=== PATIENT | female | born 1995 | race Two or more races ===

== ENCOUNTER → 2017-03-26 | Outpatient (CLI) | payer BC ==
[2017-03-26 12:36] LABS: Basophils # (auto) 0 uL; Basophils % (auto) 0.6 % (0.0-2.0); Eosinophils # (auto) 0.2 uL; Eosinophils % (auto) 2.9 % (0.0-7.0); Hematocrit 41.9 % (36.0-46.0); Hemoglobin 14.1 g/dL (12.2-16.2); Lymphocytes # (auto) 2.1 uL; Lymphocytes % (auto) 33.8 % (10.0-50.0); Mean Corpuscular Hemoglobin 28.4 pg (28.0-32.0); Mean Corpuscular Hgb Conc. 33.7 g/dL (32.0-36.0); Mean Corpuscular Volume 84.2 fL (80.0-100.0); Mean Platelet Volume 7.4 fL (6.9-10.8); Monocytes # (auto) 0.3 uL; Monocytes % (auto) 5.2 % (0.0-12.0); Neutrophils # (auto) 3.5 uL; Neutrophils % (auto) 57.5 % (37.0-80.0); Nucleated Red Blood Cells % 0.1 %; Platelet Count (auto) 346 10^3/uL (140-450); Red Cell Distribution Width 13.1 % (11.8-14.3); White Blood Cell 6.1 10^3/uL (4.4-10.8)
[2017-03-26 13:26] LABS: Albumin 4.1 g/dL (3.4-5.0); Bilirubin, Total 0.4 mg/dL (0.2-1.0); Calcium 9.5 mg/dL (8.5-10.1); Potassium 3.4 mmol/L (3.5-5.1); Total Protein 8.5 g/dL (6.4-8.2)
[2017-03-26 14:18] LABS: Urine Bilirubin Negative (Negative); Urine Blood TRACE /uL (Negative); Urine Color Yellow (Yellow); Urine Glucose Normal (Normal); Urine Ketone Negative (Negative); Urine Mucus FEW (None Seen); Urine Nitrite Negative (Negative); Urine RBC 1 /hpf (0 - 4); Urine Squamous Epithelial Cell MOD /hpf (<5); Urine Urobilinogen Normal (Negative); Urine pH 5.5 (5.0-8.0)
== END | disposition home or self-care (01) ==
LOC: LAB 11:35
PROVIDERS: ATTEND Internal Medicine
DX: N95.1 Menopausal and female climacteric states (principal); N39.9 Disorder of urinary system, unspecified; R53.83 Other fatigue; Z79.899 Other long term (current) drug therapy
CPT/HCPCS: 36415; 80053; 80061; 81001; 82670; 83001; 84146; 84439; 84443; 85025; 85652

== ENCOUNTER → 2017-04-14 | Outpatient (CLI) | payer BC ==
[2017-04-14 08:50] LABS: INR 0.92 (0.9-1.15)
[2017-04-14 09:12] LABS: Hepatitis B Surface Antibody Negative
[2017-04-16 05:06] LABS: Ceruloplasmin 27.4 mg/dL (19.0-39.0)
== END | disposition home or self-care (01) ==
LOC: LAB 07:23
PROVIDERS: ATTEND Internal Medicine
DX: R79.89 Other specified abnormal findings of blood chemistry (principal)
CPT/HCPCS: 36415; 82390; 83540; 83550; 85610; 86038; 86256; 86704; 86705; 86706; 86708; 86709; 86803; 87340

== ENCOUNTER 2018-04-26 20:05 | Emergency (ER) | payer BC ==
[~2018-04-26] VITALS: Ht 154.9 cm; Wt 90.7 kg
[2018-04-26] MEDS ORDERED: DEXAMETHASONE 4 MG TAB PO ONE (20:30)
[2018-04-26] MEDS ORDERED: diphenhdrAMINE HCL 25 MG CAP PO ONE (20:30)
[2018-04-26] MEDS ORDERED: FAMOTIDINE 20 MG TAB PO ONE (20:30)
[2018-04-26] MEDS ORDERED: DEXAMETHASONE 4 MG TAB ONE (20:32)
[2018-04-26] MEDS ORDERED: FAMOTIDINE (10MG/ML) 2ML VL IV ONE (21:45)
[2018-04-26] MEDS ORDERED: diphenhdrAMINE HCL 50 MG/1 ML VL IV ONE (21:45)
[2018-04-26] MEDS ORDERED: DEXAMETHASONE SOD PHOS 10MG/1ML VIAL INJ IV ONE (21:45)
[2018-04-26 23:00] VITALS: BP 127/86
== END 2018-04-27 00:15 | disposition home or self-care (01) ==
LOC: ER 20:05
DX: L50.8 Other urticaria (principal)
CPT/HCPCS: 96374; 96375; 99284; J1100; J1200; J3490; J8540

== ENCOUNTER 2018-04-27 14:59 | Emergency (ER) | payer BC ==
[~2018-04-27] VITALS: Ht 154.9 cm; Wt 86.6 kg
[2018-04-27 15:33] VITALS: BP 141/90
[2018-04-27] MEDS ORDERED: EPINEPHrine HCL 1 MG/1 ML AMP SC ONE (16:15)
[2018-04-27] MEDS ORDERED: methylPREDNISolone SOD SUCC 125 MG/2 ML VL IM ONE (16:15)
== END 2018-04-27 16:52 | disposition home or self-care (01) ==
LOC: ER 14:59
DX: T78.40XA Allergy, unspecified, initial encounter (principal); X58.XXXA Exposure to other specified factors, initial encounter
CPT/HCPCS: 96372; 99283; J0171; J2930

== ENCOUNTER 2018-04-27 20:50 | Emergency (ER) | payer BC ==
[~2018-04-27] VITALS: Ht 154.9 cm; Wt 88.0 kg
[2018-04-27] MEDS ORDERED: ONDANSETRON HCL 4 MG/2 ML VIAL ONE (22:12)
[2018-04-27] MEDS ORDERED: EPINEPHrine HCL 1 MG/1 ML AMP SC ONE (22:15)
[2018-04-27] MEDS ORDERED: FAMOTIDINE (10MG/ML) 2ML VL IV ONE (22:15)
[2018-04-27] MEDS ORDERED: methylPREDNISolone SOD SUCC 125 MG/2 ML VL IV ONE (22:15)
[2018-04-27] MEDS ORDERED: EPINEPHrine HCL 1 MG/1 ML AMP ONE (22:17)
[2018-04-28] MEDS ORDERED: SODIUM CHLORIDE 0.9% 1,000 ML IV ONE
[2018-04-28] MEDS ORDERED: ONDANSETRON HCL 4 MG/2 ML VIAL IV ONE
[2018-04-28 00:30] VITALS: BP 128/78
== END 2018-04-28 01:38 | disposition home or self-care (01) ==
LOC: ER 20:50
DX: T78.3XXA Angioneurotic edema, initial encounter (principal); Z88.2 Allergy status to sulfonamides; X58.XXXA Exposure to other specified factors, initial encounter
CPT/HCPCS: 96372; 96374; 96375; 99283; J0171; J2405; J2930; J3490; J7030

== ENCOUNTER → 2019-10-01 | Outpatient (CLI) | payer OTHER | END | disposition home or self-care (01) | LOC: CANPRECLI → LAB 14:29 | PROVIDERS: ATTEND Nurse Practitioner Family | DX: Z20.828 Contact with and (suspected) exposure to other viral communicable diseases (principal) ==

== ENCOUNTER → 2019-10-05 | Outpatient (CLI) | payer OTHER | END | disposition home or self-care (01) | LOC: LAB 13:43 | PROVIDERS: ATTEND Nurse Practitioner Family | DX: Z03.818 Encounter for observation for suspected exposure to other biological agents ruled out (principal) | CPT/HCPCS: U0003 ×2 ==

== ENCOUNTER → 2019-12-08 | Outpatient (CLI) | payer BC ==
[~2019-12-08] MED LIST: ONDA-144 PO
[2019-12-08 10:15] LABS: Basophils # (auto) 0 10 ^3/uL (0-0.2); Basophils % (auto) 0.5 % (0.0-2.0); Eosinophils # (auto) 0.3 10 ^3/uL (0-0.8); Eosinophils % (auto) 4.1 % (0.0-7.0); Hematocrit 41.9 % (36.0-46.0); Hemoglobin 13.6 g/dL (12.2-16.2); Lymphocytes # (auto) 1.8 10 ^3/uL (0.4-5.4); Lymphocytes % (auto) 28.1 % (10.0-50.0); Mean Corpuscular Hemoglobin 27.3 pg (28.0-32.0); Mean Corpuscular Hgb Conc. 32.5 g/dL (32.0-36.0); Monocytes # (auto) 0.4 10 ^3/uL (0-1.3); Monocytes % (auto) 5.9 % (0.0-12.0); Neutrophils % (auto) 61.4 % (37.0-80.0); Nucleated Red Blood Cells % 0.1 %; Platelet Count (auto) 369 10^3/uL (140-450); Red Blood Cells 4.99 10^6/uL (4.0-5.20); Red Cell Distribution Width 13.6 % (11.8-14.3); White Blood Cell 6.5 10^3/uL (4.4-10.8)
[2019-12-08 10:31] LABS: Urine Bacteria FEW /hpf (None Seen); Urine Blood 3+ /uL (Negative); Urine Mucus FEW (None Seen); Urine Specific Gravity 1.024 (1.001-1.035); Urine WBC 144 /hpf (0 - 5)
[2019-12-08 10:37] LABS: Albumin 3.7 g/dL (3.4-5.0); Calcium 9.8 mg/dL (8.5-10.1); Potassium 3.8 mmol/L (3.5-5.1)
[2019-12-08 10:42] LABS: BUN/Creatinine Ratio 13.6; Bilirubin, Total 0.3 mg/dL (0.2-1.0)
== END | disposition home or self-care (01) ==
LOC: LAB 09:36
PROVIDERS: ATTEND Internal Medicine
DX: F41.8 Other specified anxiety disorders (principal); K76.0 Fatty (change of) liver, not elsewhere classified
CPT/HCPCS: 36415; 80053; 80061; 81001; 84439; 84443; 85025; 85652

== ENCOUNTER 2020-01-04 16:47 | Inpatient (IN) | payer BC ==
[~2020-01-04] VITALS: Ht 154.9 cm; Wt 90.5 kg
[2020-01-04 17:39] LABS: Basophils # (auto) 0 10 ^3/uL (0-0.2); Basophils % (auto) 0.1 % (0.0-2.0); Eosinophils # (auto) 0.2 10 ^3/uL (0-0.8); Eosinophils % (auto) 0.9 % (0.0-7.0); Hematocrit 44.8 % (36.0-46.0); Hemoglobin 14.9 g/dL (12.2-16.2); Lymphocytes # (auto) 1.2 10 ^3/uL (0.4-5.4); Lymphocytes % (auto) 6.9 % (10.0-50.0); Mean Corpuscular Hemoglobin 27.6 pg (28.0-32.0); Mean Corpuscular Hgb Conc. 33.2 g/dL (32.0-36.0); Monocytes # (auto) 0.9 10 ^3/uL (0-1.3); Monocytes % (auto) 5.1 % (0.0-12.0); Neutrophils # (auto) 14.7 10 ^3/uL (1.6-8.6); Nucleated Red Blood Cells % 0.1 %; Platelet Count (auto) 420 10^3/uL (140-450); Red Blood Cells 5.39 10^6/uL (4.0-5.20); Red Cell Distribution Width 13.4 % (11.8-14.3); White Blood Cell 16.9 10^3/uL (4.4-10.8)
[2020-01-04] MEDS ORDERED: SODIUM CHLORIDE 0.9% 1,000 ML IV ONE ×2 (17:55)
[2020-01-04 17:59] LABS: Albumin 4.2 g/dL (3.4-5.0); BUN/Creatinine Ratio 23.5; Calcium 8.9 mg/dL (8.5-10.1); Potassium 3.6 mmol/L (3.5-5.1)
[2020-01-04] MEDS ORDERED: metroNIDAZOLE 500MG/100ML 100 ML IV ONE (18:00)
[2020-01-04] MEDS ORDERED: cefTRIAXone 1GM/50ML D5W 50 ML IV ONE (18:00)
[2020-01-04] MEDS ORDERED: ONDANSETRON HCL 4 MG/2 ML VIAL IV ONE (18:00)
[2020-01-04 18:01] LABS: Bilirubin, Total 0.8 mg/dL (0.2-1.0); Total Protein 8.7 g/dL (6.4-8.2)
[2020-01-04] MEDS ORDERED: ACETAMINOPHEN 325 MG TAB PO PRN (18:45)
[2020-01-04] MEDS ORDERED: ALUM & MAG HYDROX-SIMETH LIQ(MAALOX) 30 ML PO PRN (18:45)
[2020-01-04] MEDS ORDERED: HYDROcodone-ACET 5/325MG TAB PO PRN (18:45)
[2020-01-04] MEDS ORDERED: NITROGLYCERIN 0.4 MG SL TAB SL PRN (18:45)
[2020-01-04] MEDS ORDERED: DOCUSATE SOD 100 MG CAP PO PRN (18:45)
[2020-01-04] MEDS ORDERED: MORPHINE SULF INJ 2 MG/ML SYRINGE 1ML IV PRN ×2 (18:45)
[2020-01-04] MEDS ORDERED: LORazepam 0.5 MG TAB PO PRN (18:45)
[2020-01-04] MEDS ORDERED: AZITHROMYCIN 500MG/ 250ML 250 ML IV ONE (18:45)
[2020-01-04 18:47] LABS: Urine Bacteria NONE SEEN /hpf (None Seen); Urine Blood Negative /uL (Negative); Urine Mucus FEW (None Seen); Urine Specific Gravity 1.024 (1.001-1.035); Urine WBC 3 /hpf (0 - 5)
[2020-01-04 19:07] LABS: CRP High Sensitivity 4.19 mg/dL (< 0.3)
[2020-01-04 20:10] LABS: Alcohol, Urine < 3.0 mg/dL (0-10); Amphetamine Screen, Urine NEGATIVE (NEGATIVE); Barbiturate Scree,Urine NEGATIVE (NEGATIVE); Benzodiazephine Screen, Urine NEGATIVE (NEGATIVE); Cannabinoid Screen, Urine NEGATIVE (NEGATIVE); Cocaine Screen, Urine NEGATIVE (NEGATIVE); Opiate Scree,Urine NEGATIVE (NEGATIVE); Phencyclidine Screen, Urine NEGATIVE (NEGATIVE)
[2020-01-04 20:18] LABS: Cholesterol 209 mg/dL (< 200); HDL Cholesterol 54 mg/dL (40-59); LDL Cholesterol 136 mg/dL (< 100); Triglycerides 196 mg/dL (< 150)
--- NOTE | 2020-01-04 21:30 | NUR ---
Telemetry admit from ER Patient admitted to Telemetry unit, no SBAR received. Patient oriented to primary RN, unit, room, bed, and unit policies regarding patient care and visiting hours. Patient now on continuous telemetry monitoring, tele box #9 and telemetry reading on arrival to unit is 80. Bed in lowest locked position with two side rails raised and call puente within reach. Patient weighed by bed scale, Instructed on POC and encouraged to call if they need something. All questions and concerns addressed, patient verbalized understanding. Will continue to monitor Q1 hr and PRN.
[2020-01-04] MEDS ORDERED: CLINDAMYCIN 600MG IV 50 ML IV SCH (22:00)
[2020-01-04 22:30] VITALS: BP 119/78
[2020-01-04] MEDS: SODIUM CHLORIDE 0.9% 1,000 ML IV SCH (22:50)
--- NOTE | 2020-01-04 22:51 | NUR ---
MEDICATION DELAYED Patient arrived to unit with Rocephin still being administered. Azythromycin not administered in ED. Azithromycin started and running now. 2200 [address] delayed until Azithromycin is finished.
[2020-01-04] MEDS: METOCLOPRAMIDE HCL 5MG/ml INJ 2ml VIAL IV PRN (23:45)
[2020-01-05] MEDS ORDERED: ONDA-144 PO (00:52)
[2020-01-05 05:00] VITALS: BP 94/58
[2020-01-05] MEDS: METOCLOPRAMIDE HCL 5MG/ml INJ 2ml VIAL IV PRN (05:50)
[2020-01-05] MEDS: metroNIDAZOLE 500MG/100ML 100 ML IV SCH ×3 (05:50→21:40)
[2020-01-05] MEDS: SODIUM CHLORIDE 0.9% 1,000 ML IV SCH ×2 (08:04→21:31)
[2020-01-05] MEDS: levoFLOXacin 500MG 100 ML IV SCH (08:52)
[2020-01-05 08:58] VITALS: BP 100/77
[2020-01-05] MEDS ORDERED: ENOXAPARIN SOD 40 MG/0.4 ML SYRINGE SC SCH (10:00)
[2020-01-05 13:01] VITALS: BP 116/65
--- NOTE | 2020-01-05 14:35 | NUR ---
Fernanda SIDHU AT BEDSIDE. INFORMED OF PATIENT STATUS.
[2020-01-05] MEDS ORDERED: PANTOPRAZOLE 40 MG TAB PO ONE (14:45)
[2020-01-05] MEDS ORDERED: METOCLOPRAMIDE HCL 5MG/ml INJ 2ml VIAL IV PRN (14:45)
[2020-01-05] MEDS ORDERED: traMADol HCL 50 MG TAB PO PRN (14:45)
--- NOTE | 2020-01-05 16:50 | NUR ---
PER [facility] TECHNICIAN, LIVER US WILL BE DONE BY 8PM
[2020-01-05 17:10] VITALS: BP 117/75
--- NOTE | 2020-01-05 17:32 | NUR ---
REPORTS GIVEN TO EYAD COREY.
--- NOTE | 2020-01-05 19:23 | NUR ---
PATIENT TRANSFERRED TO ROOM 209 WITH EYAD COREY. TRANSPORTED WITH TELEMETRY. NO S/S OF DISTRESS NOTED AT THIS TIME.
--- NOTE | 2020-01-05 19:30 | NUR ---
Opening Shift Note Assumed care of patient, awake and alert. No S/S of distress/SOB or pain. Instructed on POC and to call for assist PRN. Bed in lowest locked position, call light within reach, side rails up x2. Will continue to monitor for changes Q1hr and PRN.
[2020-01-05 22:00] VITALS: BP 111/75
[2020-01-06 04:59] VITALS: BP 98/60
[2020-01-06 05:26] LABS: Basophils # (auto) 0 10 ^3/uL (0-0.2); Basophils % (auto) 0.2 % (0.0-2.0); Eosinophils # (auto) 0.3 10 ^3/uL (0-0.8); Eosinophils % (auto) 4.3 % (0.0-7.0); Hematocrit 37.3 % (36.0-46.0); Hemoglobin 12.7 g/dL (12.2-16.2); Lymphocytes # (auto) 1.7 10 ^3/uL (0.4-5.4); Lymphocytes % (auto) 21.6 % (10.0-50.0); Mean Corpuscular Hemoglobin 28.2 pg (28.0-32.0); Mean Corpuscular Volume 83.1 fL (80.0-100.0); Monocytes # (auto) 0.7 10 ^3/uL (0-1.3); Monocytes % (auto) 8.5 % (0.0-12.0); Neutrophils # (auto) 5.1 10 ^3/uL (1.6-8.6); Neutrophils % (auto) 65.4 % (37.0-80.0); Platelet Count (auto) 321 10^3/uL (140-450); Red Blood Cells 4.49 10^6/uL (4.0-5.20); Red Cell Distribution Width 13.4 % (11.8-14.3); White Blood Cell 7.7 10^3/uL (4.4-10.8)
[2020-01-06 05:46] LABS: Albumin 3.4 g/dL (3.4-5.0); Calcium 8.4 mg/dL (8.5-10.1); Potassium 3.5 mmol/L (3.5-5.1)
[2020-01-06 05:52] LABS: BUN/Creatinine Ratio 19.6; Bilirubin, Total 0.5 mg/dL (0.2-1.0); Total Protein 6.8 g/dL (6.4-8.2)
[2020-01-06] MEDS: metroNIDAZOLE 500MG/100ML 100 ML IV SCH (05:58)
--- NOTE | 2020-01-06 08:00 | NUR ---
Morning note Patient resting in bed with even and unlabored respirations, no distress noted. Instructed patient on POC, fall precautions and to call for assistance as needed. Patient verbalized understanding. Fall precautions in place with call light within reach.
[2020-01-06 09:00] VITALS: BP 124/57
[2020-01-06] MEDS: levoFLOXacin 500MG 100 ML IV SCH (09:22)
--- NOTE | 2020-01-06 09:30 | NUR ---
was at bedside - Dr. Colon
[2020-01-06] MEDS ORDERED: PANTOPRAZOLE 40 MG TAB PO SCH (10:00)
[2020-01-06 10:11] LABS: Hepatitis A Ab IgM Negative; Hepatitis B Core IgM Negative
[2020-01-06 10:12] LABS: Hepatitis B Surface Antigen Negative (Negative); Hepatitis C Antibody Negative (Negative)
[2020-01-06] MEDS: SODIUM CHLORIDE 0.9% 1,000 ML IV SCH (10:44)
--- NOTE | 2020-01-06 10:47 | NUR ---
Discharge Discharge education and paperwork provided to the patient per MD order. Patient verbalized understanding. Discharge prescription provided to the patient. IV removed with aseptic technique, catheter intact. Dressing applied. Patient tolerated well, no trauma to site. Telemonitor removed and returned. Patient reports having all personal belongings. Respirations even and unlabored, no distress noted.
--- NOTE | 2020-01-06 11:05 | NUR ---
Patient ambulated off unit Patient refused wheelchair. Patient ambulated with a steady gait to hospital lobby with no distress noted.
== END 2020-01-06 10:46 | disposition home or self-care (01) | DRG 871 ==
LOC: ER 16:47 → TELE 16:48 → TELE-EAST 22:01 → TELE-CENTR 01-05 18:25
PROVIDERS: ADMIT Hospitalist; ATTEND Internal Medicine
DX: A41.9 Sepsis, unspecified organism (principal); J69.0 Pneumonitis due to inhalation of food and vomit; B17.9 Acute viral hepatitis, unspecified; E66.01 Morbid (severe) obesity due to excess calories; K52.9 Noninfective gastroenteritis and colitis, unspecified; E78.5 Hyperlipidemia, unspecified; E86.0 Dehydration; K76.0 Fatty (change of) liver, not elsewhere classified; Z79.899 Other long term (current) drug therapy; Z98.84 Bariatric surgery status; Z68.37 Body mass index [BMI] 37.0-37.9, adult; Z91.013 Allergy to seafood; Z20.828 Contact with and (suspected) exposure to other viral communicable diseases
CPT/HCPCS: 36415; 71045; 71046; 74176; 76705; 80053; 80061; 80074; 80307; 81001; 81025; 82728; 83036; 83605; 83615; 84443; 84484; 85025; 86141; 87040; 87081; 87086; 87426; 96361; 96365; 96367; G0378; J0696; J1956; J2405; J3490

== ENCOUNTER 2020-03-04 11:17 | Emergency (ER) | payer OTHER, BC ==
[~2020-03-04] VITALS: Ht 157.5 cm; Wt 77.1 kg
[2020-03-04] MEDS ORDERED: HYDROcodone-ACET 10/325MG TAB PO ONE (13:15)
[2020-03-04 14:29] VITALS: BP 102/65
== END 2020-03-04 14:30 | disposition home or self-care (01) ==
LOC: ER 11:17
DX: S52.502A Unspecified fracture of the lower end of left radius, initial encounter for closed fracture (principal); Z32.02 Encounter for pregnancy test, result negative; V43.52XA Car driver injured in collision with other type car in traffic accident, initial encounter; Y93.89 Activity, other specified; Y92.488 Other paved roadways as the place of occurrence of the external cause; Y99.8 Other external cause status
CPT/HCPCS: 29125; 73110; 81025

== ENCOUNTER → 2020-03-17 | Day surgery (SDC) | payer BC ==
[2020-03-10 14:35] LABS: Basophils # (auto) 0 10 ^3/uL (0-0.2); Basophils % (auto) 0.5 % (0.0-2.0); Eosinophils # (auto) 0.2 10 ^3/uL (0-0.8); Eosinophils % (auto) 2.8 % (0.0-7.0); Hematocrit 38.2 % (36.0-46.0); Hemoglobin 12.8 g/dL (12.2-16.2); Lymphocytes # (auto) 1.6 10 ^3/uL (0.4-5.4); Lymphocytes % (auto) 27.9 % (10.0-50.0); Mean Corpuscular Hemoglobin 28.6 pg (28.0-32.0); Mean Corpuscular Hgb Conc. 33.5 g/dL (32.0-36.0); Mean Corpuscular Volume 85.4 fL (80.0-100.0); Monocytes # (auto) 0.4 10 ^3/uL (0-1.3); Monocytes % (auto) 7.7 % (0.0-12.0); Neutrophils # (auto) 3.4 10 ^3/uL (1.6-8.6); Neutrophils % (auto) 61.1 % (37.0-80.0); Platelet Count (auto) 302 10^3/uL (140-450); Red Blood Cells 4.47 10^6/uL (4.0-5.20); White Blood Cell 5.6 10^3/uL (4.4-10.8)
[2020-03-10 14:54] LABS: INR 0.98 (0.9-1.15); Partial Thromboplastin Time 29.1 sec (23.0-31.2)
[2020-03-10 14:57] LABS: Urine Bacteria NONE SEEN /hpf (None Seen); Urine Blood Negative /uL (Negative); Urine Hyaline Cast FEW /lpf (0 - 2); Urine Mucus MODERATE (None Seen); Urine Specific Gravity 1.024 (1.001-1.035); Urine WBC 13 /hpf (0 - 5)
[2020-03-10 15:45] LABS: Albumin 3.8 g/dL (3.4-5.0); Potassium 3.6 mmol/L (3.5-5.1)
[2020-03-10 15:48] LABS: BUN/Creatinine Ratio 13.3; Bilirubin, Total 0.4 mg/dL (0.2-1.0); Total Protein 7.7 g/dL (6.4-8.2)
[~2020-03-17] VITALS: Ht 157.5 cm; Wt 77.1 kg
[~2020-03-17] MED LIST changes: +BUPIVACAINE 0.25% INJ 50ML VIAL ONE; +GLYCOPYRROLATE 0.2 MG/ML 1ML VIAL ONE; +HYDROmorphone HCL 2 MG/ML VL IV ONE; +HYDROmorphone HCL 2 MG/ML VL IV PRN; +KETOROLAC TROMETH 30 MG/ML 1ML VIAL ONE; +KETOROLAC TROMETH 60MG/2ML VIAL ONE; +LIDOCAINE 1% (LOCAL ANESTH.) PF 5ml SDV ONE; +MIDAZOLAM HCL 1MG/1ML-2 ML VIAL ONE; +NALOXONE HCL 0.4 MG/ML VIAL IV PRN; +NEOSTIGMINE 1 MG/ML INJ (10mg/10ML VIAL) ONE; -ONDA-144 PO; +ONDANSETRON HCL 4 MG/2 ML VIAL IV ONE; +ONDANSETRON HCL 4 MG/2 ML VIAL IV PRN; +PROPOFOL 10 MG/ML 20 ML IV ONE; +SUCCINYLCHOLINE CHLORIDE 20 MG/ML 10ML VIAL IV ONE; +TRAM50TA2 PO; +fentaNYL CITRATE 100 MCG/2 ML VL ONE
[2020-03-17 11:30] VITALS: BP 123/70
== END | disposition home or self-care (01) ==
LOC: SUR 07:45
PROVIDERS: ATTEND Orthopaedic Surgery Adult Reconstructive Orthopaedic Surgery
DX: S52.592A Other fractures of lower end of left radius, initial encounter for closed fracture (principal); E66.01 Morbid (severe) obesity due to excess calories; Z20.828 Contact with and (suspected) exposure to other viral communicable diseases; Z98.890 Other specified postprocedural states; Z79.899 Other long term (current) drug therapy; Z68.31 Body mass index [BMI] 31.0-31.9, adult; X58.XXXA Exposure to other specified factors, initial encounter; Y93.89 Activity, other specified; Y92.89 Other specified places as the place of occurrence of the external cause; Y99.8 Other external cause status
CPT/HCPCS: 25607; 36415; 73100; 76000; 80053; 81001; 84702; 85025; 85610; 85730; J0330; J1170; J1885; J2250; J2405; J2704; J3010; J3490; U0003

== ENCOUNTER → 2020-05-03 | Outpatient (CLI) | payer BC ==
[~2020-05-03] MED LIST changes: -BUPIVACAINE 0.25% INJ 50ML VIAL ONE; -GLYCOPYRROLATE 0.2 MG/ML 1ML VIAL ONE; -HYDROmorphone HCL 2 MG/ML VL IV ONE; -HYDROmorphone HCL 2 MG/ML VL IV PRN; -KETOROLAC TROMETH 30 MG/ML 1ML VIAL ONE; -KETOROLAC TROMETH 60MG/2ML VIAL ONE; -LIDOCAINE 1% (LOCAL ANESTH.) PF 5ml SDV ONE; -MIDAZOLAM HCL 1MG/1ML-2 ML VIAL ONE; -NALOXONE HCL 0.4 MG/ML VIAL IV PRN; -NEOSTIGMINE 1 MG/ML INJ (10mg/10ML VIAL) ONE; -ONDANSETRON HCL 4 MG/2 ML VIAL IV ONE; -ONDANSETRON HCL 4 MG/2 ML VIAL IV PRN; -PROPOFOL 10 MG/ML 20 ML IV ONE; -SUCCINYLCHOLINE CHLORIDE 20 MG/ML 10ML VIAL IV ONE; -fentaNYL CITRATE 100 MCG/2 ML VL ONE
[2020-05-03 14:16] LABS: Basophils # (auto) 0 10 ^3/uL (0-0.2); Basophils % (auto) 0.5 % (0.0-2.0); Eosinophils # (auto) 0.1 10 ^3/uL (0-0.8); Hematocrit 38.3 % (36.0-46.0); Lymphocytes # (auto) 1.7 10 ^3/uL (0.4-5.4); Lymphocytes % (auto) 32.6 % (10.0-50.0); Mean Corpuscular Hemoglobin 28.9 pg (28.0-32.0); Mean Corpuscular Volume 85.2 fL (80.0-100.0); Monocytes # (auto) 0.3 10 ^3/uL (0-1.3); Monocytes % (auto) 6.5 % (0.0-12.0); Neutrophils # (auto) 3.1 10 ^3/uL (1.6-8.6); Neutrophils % (auto) 58.4 % (37.0-80.0); Nucleated Red Blood Cells % 0.1 %; Platelet Count (auto) 309 10^3/uL (140-450); Red Blood Cells 4.49 10^6/uL (4.0-5.20); Red Cell Distribution Width 13.1 % (11.8-14.3); White Blood Cell 5.2 10^3/uL (4.4-10.8)
[2020-05-03 15:21] LABS: Calcium 9.3 mg/dL (8.5-10.1); Potassium 3.5 mmol/L (3.5-5.1)
[2020-05-03 15:26] LABS: BUN/Creatinine Ratio 9.1; Bilirubin, Total 0.3 mg/dL (0.2-1.0); Total Protein 7.7 g/dL (6.4-8.2)
== END | disposition home or self-care (01) ==
LOC: LAB 14:00
PROVIDERS: ATTEND Internal Medicine
DX: K21.9 Gastro-esophageal reflux disease without esophagitis (principal); K76.0 Fatty (change of) liver, not elsewhere classified; R79.89 Other specified abnormal findings of blood chemistry; Z98.84 Bariatric surgery status
CPT/HCPCS: 36415; 80053; 82607; 84207; 85025